=== PATIENT | female | born 1955 | race Caucasian/White ===

== ENCOUNTER 2024-10-15 11:00 | Outpatient (RCR) | payer MEDICARE, SELFPAY ==
--- NOTE | 2024-08-13 11:53 | OPREHPOC ---
Outpatient Therapy Plan of Care This is a Multidisciplinary Plan of Care that may contain components documented by all disciplines (PT, OT, and ST.) PT Problem 1 PT Problem #1 Knowledge Deficit PT Goal 1 Goal / Goal Update 1* independent with HEP 2* pt demonstrate correct posture and body mechanics with lifting from the floor Target Visit 8 PT Problem 2 PT Problem #2 Pain PT Goal 1 Goal / Goal Update 1* pt report pain at worst of 2/10 2* pt report NO radicular pain into L LE Target Visit 8 PT Problem 3 PT Problem #3 Impaired Flexibility PT Goal 1 Goal / Goal Update increase flexibility of L hip to decrease imbalance R/L 1* hamstring length with supine SLR to 50' 2* piriformis with supine cross leg stretch, pt report R=L tightness Target Visit 8 PT Problem 4 PT Problem #4 Impaired Strength PT Goal 1 Goal / Goal Update increase strength, to improve stability to lumbar- sacral- hip complex, for decrease pain in back 1* hip extension strength bilateral 4+/5 single leg standing with good stability x 12 seconds 2* R 3* L Target Visit 8
--- NOTE | 2024-08-13 11:53 | PTOPEVAL1 ---
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 Onset of pain after [place] the [place] on uneven surfaces. Pain has decreased since onset, she has been doing stretching and resting, heat and ice. Pain is intermittent into L lateral calf and self assessment back index rating of 24% limitation in activity level. She is active and watches for her 5 year old grand daughter 4 days/week. With the evaluation: back pain is increased with standing trunk flexion and supine bridge' pain is decreased with prone on elbow stretching; decreased flexibility of L hamstring, piriformis muscles with weakness of hip extension and single leg standing. Skilled PT services are indicated for modalities PRN for pain; therapeutic exercises and education for HEP, posture and body mechanics. Plan of Care Interventions Electrical Stimulation,Hot Pack/Cold Pack,Manual Therapy,Mechanical Traction,Neuro Re-education, Patient/Caregiver Education,Therapeutic Activities ,Therapeutic Exercise,Ultrasound,Other Other Interventions taping, dry needling PT Services Indicated Yes Treatment Frequency and 1-2x/wk for 8 visits Duration These treatments will address the objective and functional deficits as defined above. The patient will be advanced safely and appropriately in order for the patient to progress towards his/her prior level of function. Additional exercises will be introduced and as well as a comprehensive home exercise program upon discharge, if needed, ?to ensure carryover of functional gains achieved in the clinic. This treatment plan has been reviewed and agreement upon by the patient.
--- NOTE | 2024-10-15 11:53 | OPREHPOC ---
Outpatient Therapy Plan of Care This is a Multidisciplinary Plan of Care that may contain components documented by all disciplines (PT, OT, and ST.) PT Problem 1 PT Problem #1 Knowledge Deficit PT Goal 1 Goal / Goal Update 1* independent with HEP 2* pt demonstrate correct posture and body mechanics with lifting from the floor 10-15-24 d/c goals met Target Visit 8 Progress Met PT Problem 2 PT Problem #2 Pain PT Goal 1 Goal / Goal Update 1* pt report pain at worst of 2/10 2* pt report NO radicular pain into L LE 10-15-24 d/c goals met Target Visit 8 Progress Met PT Problem 3 PT Problem #3 Impaired Flexibility PT Goal 1 Goal / Goal Update increase flexibility of L hip to decrease imbalance R/L 1* hamstring length with supine SLR to 50' 2* piriformis with supine cross leg stretch, pt report R=L tightness 10-15-24 d/c goals met Target Visit 8 Progress Met PT Problem 4 PT Problem #4 Impaired Strength PT Goal 1 Goal / Goal Update increase strength, to improve stability to lumbar- sacral- hip complex, for decrease pain in back 1* hip extension strength bilateral 4+/5 single leg standing with good stability x 12 seconds 2* R 3* L 10-15-24 d/c goals met Target Visit 8 Progress Met
--- NOTE | 2024-10-15 11:53 | PTOPDC ---
Assessment and note entered by Jennifer Magallanes, PT Assessment Status Discharge ICD-10 Condition Codes (PT) Radiculopathy, lumbar region M54.16 Onset June 27, 2024 Subjective Information back to doing everything, no pain in back, doing exercises at home; walking every day 30-45 minutes and doing OK with that too; Reported Pain Level Pain Score 0: Self Report Additional Pain Score Comments no pain in the past week; Assessment PT Clinical Summary Radha has received 6 PT sessions. She has improved in all areas since initial evaluation: does NOT have any pain in her back or L LE; self assessment Back Index rating of 0% limitation in activity level; increase strength of trunk and hips/LE's; increase flexibility of bilateral hamstrings and piriformis muscles and education completed for HEP and body mechanics. All goals were achieved. Discharge PT. She is to continue with her HEP and monitoring her posture. Plan of Care PT Services Indicated No
== END 2024-10-15 12:49 | disposition home or self-care (01) ==
LOC: ANHPT 11:00
DX: M54.32 Sciatica, left side (principal)
CPT/HCPCS: 97110; 97140; 97161; 97530